=== PATIENT | female | born 1995 | race Caucasian/White ===

== ENCOUNTER 2017-01-21 09:43 | Emergency (ER) | payer MEDICAID ==
[~2017-01-21] VITALS: Ht 160 cm; Wt 62.6 kg
[2017-01-21 10:37] LABS: Urine RBC None Seen /hpf (0 - 4)
[2017-01-21 10:58] LABS: Basophils # (auto) 0.1 uL; Basophils % (auto) 2.4 % (0.0-2.0); Eosinophils # (auto) 0.3 uL; Eosinophils % (auto) 6.2 % (0.0-7.0); Hematocrit 42.3 % (36.0-46.0); Hemoglobin 14.3 g/dL (12.2-16.2); Lymphocytes # (auto) 1.6 uL; Lymphocytes % (auto) 28.3 % (10.0-50.0); Mean Corpuscular Hemoglobin 31.2 pg (28.0-32.0); Mean Corpuscular Hgb Conc. 33.9 g/dL (32.0-36.0); Mean Corpuscular Volume 92.1 fL (80.0-100.0); Mean Platelet Volume 9.6 fL (6.9-10.8); Monocytes # (auto) 0.4 uL; Monocytes % (auto) 6.9 % (0.0-12.0); Neutrophils # (auto) 3.1 uL; Neutrophils % (auto) 56.2 % (37.0-80.0); Nucleated Red Blood Cells % 0.2 %; Platelet Count (auto) 236 10^3/uL (140-450); Red Cell Distribution Width 13.4 % (11.8-14.3); White Blood Cell 5.5 10^3/uL (4.4-10.8)
[2017-01-21 11:08] LABS: BUN/Creatinine Ratio 11.1; Bilirubin, Total 0.4 mg/dL (0.2-1.0); Calcium 9.2 mg/dL (8.5-10.1); Potassium 4.3 mmol/L (3.5-5.1); Total Protein 8.1 g/dL (6.4-8.2)
[2017-01-21 11:14] LABS: Urine Bilirubin Negative (Negative); Urine Blood Negative /uL (Negative); Urine Color Straw (Yellow); Urine Glucose 4+ mg/dL (Normal); Urine Ketone Negative (Negative); Urine Nitrite Negative (Negative); Urine Squamous Epithelial Cell FEW /hpf (<5); Urine Urobilinogen Normal (Negative); Urine pH 6.5 (5.0-8.0)
[2017-01-21] MEDS ORDERED: InsuLIN REG 1unit/0.01ml Soln (100units/ml) IV ONE (11:30)
[2017-01-21 13:12] VITALS: BP 108/63
== END 2017-01-21 13:13 | disposition home or self-care (01) ==
LOC: ER 09:43
DX: E10.649 Type 1 diabetes mellitus with hypoglycemia without coma (principal)
CPT/HCPCS: 36415; 80053; 81001; 82962; 85025; 96374; 99284; J1815

== ENCOUNTER 2017-01-22 12:43 | Inpatient (IN) | payer MEDICAID ==
[~2017-01-22] VITALS: Ht 160 cm; Wt 68.1 kg
[2017-01-22] MEDS ORDERED: SODIUM CHLORIDE 0.9% 1,000 ML IV ONE (13:39)
[2017-01-22 14:12] LABS: Basophils # (auto) 0.1 uL; Basophils % (auto) 1.3 % (0.0-2.0); Eosinophils # (auto) 0.3 uL; Eosinophils % (auto) 4.9 % (0.0-7.0); Hemoglobin 14.2 g/dL (12.2-16.2); Lymphocytes # (auto) 1.8 uL; Lymphocytes % (auto) 28.6 % (10.0-50.0); Mean Corpuscular Hemoglobin 30.7 pg (28.0-32.0); Mean Corpuscular Hgb Conc. 33.8 g/dL (32.0-36.0); Mean Platelet Volume 9.3 fL (6.9-10.8); Monocytes # (auto) 0.5 uL; Monocytes % (auto) 7.6 % (0.0-12.0); Neutrophils # (auto) 3.7 uL; Neutrophils % (auto) 57.6 % (37.0-80.0); Platelet Count (auto) 257 10^3/uL (140-450); Red Cell Distribution Width 13.2 % (11.8-14.3); White Blood Cell 6.4 10^3/uL (4.4-10.8)
[2017-01-22 14:23] LABS: Albumin 3.8 g/dL (3.4-5.0); BUN/Creatinine Ratio 12.9; Calcium 9.1 mg/dL (8.5-10.1)
[2017-01-22 14:26] LABS: Bilirubin, Total 0.5 mg/dL (0.2-1.0); Total Protein 7.6 g/dL (6.4-8.2)
[2017-01-22] MEDS ORDERED: ONDANSETRON HCL 4 MG/2 ML VIAL IV PRN (15:00)
[2017-01-22] MEDS ORDERED: DEXTROSE (50%) 50ML SYRG IV PRN (15:00)
[2017-01-22] MEDS: SODIUM CHLORIDE 0.9% 1,000 ML IV SCH (15:16)
[2017-01-22] MEDS: ACCU-CHEK COMFORT CURVE STRIP VI SCH ×2 (17:20→22:11)
[2017-01-22] MEDS: InsuLIN REG 1unit/0.01ml Soln (100units/ml) SC SCH ×2 (17:21→22:12)
[2017-01-22 17:59] VITALS: BP 119/80
[2017-01-22 20:32] LABS: Urine Bilirubin Negative (Negative); Urine Blood Negative /uL (Negative); Urine Color Yellow (Yellow); Urine Glucose TRACE mg/dL (Normal); Urine Ketone Negative (Negative); Urine Nitrite Negative (Negative); Urine RBC <1 /hpf (0 - 4); Urine Squamous Epithelial Cell FEW /hpf (<5); Urine Urobilinogen Normal (Negative); Urine pH 6.5 (5.0-8.0)
[2017-01-22 22:00] VITALS: BP 115/71
[2017-01-22] MEDS: INSULIN DETEMIR(LEVEMIR) 1unit/0.01ml Soln (100units/ml) SC SCH (22:12)
[2017-01-23 05:00] VITALS: BP 97/56
[2017-01-23] MEDS: InsuLIN REG 1unit/0.01ml Soln (100units/ml) SC SCH ×4 (06:31→22:15)
[2017-01-23] MEDS: INSULIN DETEMIR(LEVEMIR) 1unit/0.01ml Soln (100units/ml) SC SCH (06:31)
[2017-01-23] MEDS: SODIUM CHLORIDE 0.9% 1,000 ML IV SCH ×4 (06:31→23:48)
[2017-01-23] MEDS: ACCU-CHEK COMFORT CURVE STRIP VI SCH ×4 (06:32→22:15)
[2017-01-23 07:07] LABS: BUN/Creatinine Ratio 20.4; Calcium 8.1 mg/dL (8.5-10.1); Potassium 3.8 mmol/L (3.5-5.1)
[2017-01-23 09:00] VITALS: BP 115/62
[2017-01-23] MEDS: PANTOPRAZOLE 40 MG TAB PO SCH (09:33)
[2017-01-23] MEDS ORDERED: INSULIN DETEMIR(LEVEMIR) 1unit/0.01ml Soln (100units/ml) SC ONE (10:15)
[2017-01-23 13:00] VITALS: BP 117/78
[2017-01-23 16:58] VITALS: BP 109/76
[2017-01-23 21:38] VITALS: BP 108/70
[2017-01-24 05:13] VITALS: BP 101/52
[2017-01-24 05:52] LABS: Calcium 8.3 mg/dL (8.5-10.1); Potassium 3.8 mmol/L (3.5-5.1)
[2017-01-24 05:58] LABS: BUN/Creatinine Ratio 21.3
[2017-01-24] MEDS: SODIUM CHLORIDE 0.9% 1,000 ML IV SCH ×2 (06:09→12:49)
[2017-01-24] MEDS: InsuLIN REG 1unit/0.01ml Soln (100units/ml) SC SCH ×3 (06:58→16:44)
[2017-01-24] MEDS: ACCU-CHEK COMFORT CURVE STRIP VI SCH ×3 (06:58→16:30)
[2017-01-24 09:00] VITALS: BP 104/71
[2017-01-24] MEDS: PANTOPRAZOLE 40 MG TAB PO SCH (10:00)
[2017-01-24] MEDS ORDERED: INSULIN DETEMIR(LEVEMIR) 1unit/0.01ml Soln (100units/ml) SC SCH (10:00)
[2017-01-24 13:00] VITALS: BP 110/75
== END 2017-01-24 17:20 | disposition home or self-care (01) | DRG 420 ==
LOC: ER 12:43 → OVERFLOW 12:44 → WEST WING 17:47
PROVIDERS: ADMIT Internal Medicine; ATTEND Internal Medicine
DX: E10.65 Type 1 diabetes mellitus with hyperglycemia (principal); E86.0 Dehydration; Z83.3 Family history of diabetes mellitus; Z79.4 Long term (current) use of insulin
CPT/HCPCS: 36415; 80048; 80053; 81001; 82010; 82962; 83036; 85025; 94761; 96360; J1815